=== PATIENT | female | born 1985 ===

== ENCOUNTER 2018-05-18 14:43 | Outpatient (CLI) | payer OTHER | END 2018-05-18 14:44 | disposition home or self-care (01) | LOC: C.LAB 14:43 ==

== ENCOUNTER 2018-06-03 08:37 | Outpatient (CLI) | payer SELFPAY | END 2018-06-03 08:38 | disposition home or self-care (01) | LOC: C.LAB 08:37 ==

== ENCOUNTER 2018-06-08 09:38 | Emergency (ER) | payer SELFPAY ==
[2018-06-08 09:48] VITALS: BP 133/95; PULSE 89; RESP 18; TEMP 98.3; O2SAT 100
[2018-06-08] MEDS ORDERED: Penicillin G Benzathine 2.4 Mill Unit/4 ml Syr IM ONE (10:04)
--- NOTE | 2018-06-08 11:25 | C.PDOC ---
History Of Present Illness Pt was sent in by her Manager Dialysis Dr. Rios to receive Bicillin IM due to positive RPR. Pt is asymptomatic. Time Seen by Provider: 06/08/18 09:52 Chief Complaint (Nursing): Medical Clearance History Per: Patient Onset/Duration Of Symptoms: Days Current Symptoms Are (Timing): Still Present Severity: None Reports Recently: Treated By A Physician Additional History Per: Prior Records Past Medical History Reviewed: Historical Data, Nursing Documentation, Vital Signs Vital Signs: Last Vital Signs Temp 98.3 F 06/08/18 09:45 Pulse 89 06/08/18 09:45 Resp 18 06/08/18 09:45 BP 133/95 H 06/08/18 09:45 Pulse Ox 100 06/08/18 09:45 - Medical History PMH: No Chronic Diseases Other PMH: Pt is 32 weeks . Family History: States: Unknown Family Hx - Social History Hx Tobacco Use: No Hx Alcohol Use: No Hx Substance Use: No - Immunization History Hx Tetanus Toxoid Vaccination: No Hx Influenza Vaccination: No Hx Pneumococcal Vaccination: No Review Of Systems Except As Marked, All Systems Reviewed And Found Negative. Constitutional: Negative for: Fever Cardiovascular: Negative for: Chest Pain Respiratory: Negative for: Shortness of Breath Gastrointestinal: Negative for: Abdominal Pain Musculoskeletal: Negative for: Neck Pain Skin: Negative for: Rash Neurological: Negative for: Weakness, Numbness Physical Exam - Physical Exam Appears: Non-toxic, No Acute Distress Skin: Normal Color, Warm, Dry Head: Atraumatic, Normacephalic Eye(s): bilateral: PERRL Neck: Normal ROM, Supple Cardiovascular: Rhythm Regular Respiratory: Normal Breath Sounds, No Accessory Muscle Use Gastrointestinal/Abdominal: Soft, No Tenderness, Other (Gravid) Extremity: Normal ROM Neurological/Psych: Oriented x3, Normal Motor, Normal Sensation ED Course And Treatment O2 Sat by Pulse Oximetry: 100 Pulse Ox Interpretation: Normal - Physician Consult Information Physician Contacted: Bart Rios Outcome Of Conversation: She wants pt to go up to L&D for further evaluation after Bicillin injection. Disposition Counseled Patient/Family Regarding: Diagnosis, Need For Followup - Disposition Disposition: HOME/ ROUTINE Disposition Time: 11:25 Condition: STABLE Additional Instructions: Go to L&D department today for further evaluation and treatment. Instructions: Syphilis (DC) - Clinical Impression Clinical Impression: Positive RPR test
== END 2018-06-08 11:47 | disposition home or self-care (01) ==
LOC: C.ER 09:38
DX: A53.0 Latent syphilis, unspecified as early or late (principal)

== ENCOUNTER 2018-06-10 09:39 | Emergency (ER) | payer SELFPAY ==
[2018-06-10 11:56] VITALS: BMI 24.2
[2018-06-10 12:13] LABS: SQUAMOUS EPITHIAL 6 /hpf (0-5); URINE BACTERIA MANY (<OCC); URINE BILIRUBIN NEGATIVE (NEGATIVE); URINE BLOOD NEGATIVE (NEGATIVE); URINE CLARITY Clear (Clear); URINE COLOR Straw (YELLOW); URINE GLUCOSE (UA) 1+ mg/dL (Normal); URINE LEUKOCYTE ESTERASE NEG Leu/uL (Negative); URINE PROTEIN NEGATIVE (NEGATIVE); URINE UROBILINOGEN NORMAL mg/dL (0.2-1.0)
[2018-06-10 17:32] VITALS: BP 105/68; PULSE 67; RESP 20; TEMP 97.1; O2SAT 100
== END 2018-06-10 13:21 | disposition home or self-care (01) ==
LOC: C.EROB 09:39
DX: Z36.89 Encounter for other specified antenatal screening (principal)

== ENCOUNTER 2018-06-29 11:32 | Emergency (ER) | payer OTHER ==
[2018-06-29] MEDS ORDERED: Lactated Ringer's 1,000 ML IV ONE (12:39)
[2018-06-29 13:06] LABS: BASO % 0.4 % (0.0-2.0); EOS % 0.6 % (0.0-4.0); HEMOGLOBIN 12.1 g/dL (11.0-16.0); LYMPH # 1.4 K/uL (1.0-4.3); LYMPH % 16.9 % (20.0-40.0); MEAN CELL VOLUME 89.3 fL (81.0-99.0); MEAN CORPUSCULAR HEMOGLOBIN 30.6 pg (27.0-31.0); MEAN CORPUSCULAR HGB CONC 34.3 g/dL (33.0-37.0); MEAN PLATELET VOLUME 8.3 fL (7.2-11.7); MONO # 0.7 K/uL (0.0-0.8); MONO % 8.7 % (0.0-10.0); NEUT # 6.3 K/uL (1.8-7.0); NEUT % 73.4 % (50.0-75.0); RBC 3.95 Mil/uL (3.80-5.20); RED CELL DISTRIBUTION WIDTH 12.1 % (11.5-14.5); WHITE BLOOD COUNT 8.6 K/uL (4.8-10.8)
[2018-06-29 13:17] LABS: INR 0.9
[2018-06-29 13:23] LABS: SQUAMOUS EPITHIAL 10 /hpf (0-5); URINE BACTERIA RARE (<OCC); URINE BILIRUBIN NEGATIVE (NEGATIVE); URINE BLOOD NEGATIVE (NEGATIVE); URINE CLARITY Clear (Clear); URINE COLOR Straw (YELLOW); URINE GLUCOSE (UA) NORMAL (Normal); URINE LEUKOCYTE ESTERASE NEG Leu/uL (Negative); URINE PROTEIN NEGATIVE (NEGATIVE); URINE UROBILINOGEN NORMAL mg/dL (0.2-1.0)
[2018-06-29 13:28] LABS: ALBUMIN 3.3 g/dL (3.5-5.0); ALT/SGPT 13 U/L (9-52); AST/SGOT 28 U/L (14-36); BLOOD UREA NITROGEN 12 mg/dL (7-17); CALCIUM 9.1 mg/dl (8.6-10.4); GFR NON-AFRICAN AMERICAN > 60; URIC ACID 4.6 mg/dL (2.2-7.5)
[2018-06-29 13:42] LABS: PROTHROMBIN TIME 9.9 SECONDS (9.7-12.2)
--- NOTE | 2018-06-29 14:14 | US ---
Indication: Decreased movement Comparison: None available Technique: Real-time ultrasound was performed through the pelvis. Findings: There is a single living fetus in cephalic presentation. Amniotic fluid volume is within normal limits measuring approximately 10.9 cm. Posterior placenta. The placenta is not previa. There are no adnexal masses or cysts evident. Cervix length measures approximately 4.3 cm. The study was performed for the emergent evaluation of decreased movement, and the whole anatomic survey of the fetus was not performed. Measurements and calculations: Fetus has a composite sonographic age of 34 weeks 6 days. This calculation is based on the biparietal diameter, head circumference, abdominal circumference, and femur length. Estimated heart rate 137.2 beats per min. Estimated weight 2565 g. Biophysical profile: movements 2/2 breathing 2/2 tone 2/2 Amniotic fluid 2/2 Total score impression: 8 Impression: Single living fetus with a composite sonographic age of 34 weeks 6 days. Estimated heart rate 137.2 beats per min. Biophysical profile of 8 out of 8.
[2018-06-29 19:27] VITALS: BP 128/78; PULSE 75; RESP 18; TEMP 97.7; O2SAT 100
--- NOTE | 2018-06-30 14:15 | OBHP ---
Datetime: 06/29/2018 12:26 IP Adm Impression: , intrauterine ; No Active Labor IP Admit Plan: Discharge home Admit Comment, IP Provider: Patient is a 33 year old at 35w2d by LMP with NASIR 08/01/18 who pr esents to the unit for decreased movement. Patient states that she stopped feeling the baby mov e aat approximately 7am. She reports that she last ate at approximately 6am. She denies any contracti ons, vaginal bleeding or leakage of fluid. Denies headaches, dizziness, blurry vision, RUQ/epigatsric pain, edema. Patient was seeing Dr Rios in the past for care but just recently transferre d care to [facility]. Issues: + RPR - treated with Bicillin x 1 Gestational vs Chronic Hypertension? - on labetalol 100mg PO BID Advanced Maternal Age Previous C/S x 1 OB Hx: 1. 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 Triad 14 x regular x 5 days Denies history of fibroids, ovarian cysts, STDs Denies history of abnormal pap smears Allergies: NKDA Medications: Labetalol 100mg PO BID, PNV Medical History: Denies Surgical History: C/S x 1 Social History: Denies alcohol, tobacco, drug use Family History: Mother - healthy; Father - healthy PE: see above A/P: 33 year old at 35w2d who presents with decreased movement, previous c/s x 1, hx of positive RPR, on labetalol 100mg PO BID -NST reactive, Category I tracing -Irregular contractions noted on TOCO - IV fluid hydration ordered -Elevated BP measurement noted during initial interview - PIH labs ordered - BPP ordered -Will continue to monitor [employer] instructional facilitator # [id number] used for Elizabeth translation. Discussed with Dr Efren Amin DO PGY-2 Addendum: BPP 12/15, PIH labs within normal limits. Patient not in labor and currentlt endorses +FM. We will discharge patient home with labor precautions. Patient to follow up with [facility] as scheduled. A copy of her lab work and US report was provided to the patient. Pt seen and examined with Dr. Amin and agreed with all of her findings and POC. FHR - Baseline A Provider: 135 Contraction Comments Provider: irregular Comments, ACOG Physical Exam: VS: BP 129/79, 130/93 HR 88 Sat 100% on RA Gen: NAD, AAOx3 Abdomen: Soft, gravid, no RUQ/epigastric tenderness Ext: No edema, cyanosis, clubbing, no calf tenderness SVE: closed/50/-3 EGA AdmitDate IP: 35.2 Vital Signs Provider: Reviewed IP Chief Complaint: Decreased movement NICHD Variability Prov Fetus A: Moderate 6-25bpm NICHD Accel Fetus A IP Provider: 15X15 FHR Category Provider Fetus A: Category I NICHD Decel Fetus A IP Provider: None Dilatation, Provider: closed Effacement, Provider: 50 Station, Provider: -3 Datetime: 06/10/2018 11:08 Pelvic Type - PN: Adequate Abdomen - PN: Normal General - PN: Normal Gestation - Est Wks by US: 32.4
--- NOTE | 2018-06-30 14:22 | OBDCSUM ---
Datetime: 06/29/2018 14:44 Discharge Comment, Provider: Patient presented with decreased movement since this morning. NST was reactive and BPP was 8/8. She initially has some elevated BP readings, PIH labs were within norm al limits. Some irregular contractions were noted on TOCO. Patient was given IV fluid hydration. Kassandra ent not in labor. labor precautions were given. Patient to follow up with the clinic as sched uled tomorrow. Plan discussed with Dr Schwartz. Madisyn Amin DO PGY-2 Pt seen and examined with Dr. Amin and agreed with all of her findings and POC
== END 2018-06-29 15:01 | disposition home or self-care (01) ==
LOC: C.EROB 11:32
DX: O36.8130 Decreased fetal movements, third trimester, not applicable or unspecified (principal); Z3A.35 35 weeks gestation of pregnancy
CPT/HCPCS: 76815; 76818; 80053; 81001; 82570; 83615; 84156; 84550; 85025; 85384; 85610; 85730; 99284; J7120

== ENCOUNTER 2018-07-02 08:34 | Outpatient (CLI) | payer OTHER | END 2018-07-02 08:35 | disposition home or self-care (01) | LOC: C.LAB 08:34 | DX: Z34.93 Encounter for supervision of normal pregnancy, unspecified, third trimester (principal) ==

== ENCOUNTER 2018-07-25 07:35 | Inpatient (IN) | payer SELFPAY ==
[2018-07-25] MEDS ORDERED: Lactated Ringer's 1,000 ML IV ONE (08:11)
[2018-07-25 08:15] VITALS: BMI 31.9
[2018-07-25] MEDS ORDERED: Sodium Citrate/Citric Acid 15 ml Sol PO ONE (08:30)
[2018-07-25] MEDS ORDERED: cefOXitin IV 2 gm in Dextrose 2 GM/50 ML BAG IVPB ONE ×2 (09:00→09:24)
[2018-07-25] MEDS ORDERED: Sodium Citrate/Citric Acid 15 ml Sol ONE (09:24)
[2018-07-25] MEDS ORDERED: Oxytocin 20 units in LR 2,000 ML IV ONE (09:26)
[2018-07-25 09:27] LABS: BASO # 0.1 K/uL (0.0-0.2); BASO % 0.7 % (0.0-2.0); EOS # 0.1 K/uL (0.0-0.7); EOS % 1.3 % (0.0-4.0); HEMOGLOBIN 12.9 g/dL (11.0-16.0); LYMPH # 1.5 K/uL (1.0-4.3); LYMPH % 16.5 % (20.0-40.0); MEAN CELL VOLUME 90.4 fL (81.0-99.0); MEAN CORPUSCULAR HEMOGLOBIN 30.4 pg (27.0-31.0); MEAN CORPUSCULAR HGB CONC 33.6 g/dL (33.0-37.0); MONO # 0.8 K/uL (0.0-0.8); MONO % 8.9 % (0.0-10.0); NEUT # 6.4 K/uL (1.8-7.0); NEUT % 72.6 % (50.0-75.0); NRBC % 0.1 % (0.0-2.0); RBC 4.23 Mil/uL (3.80-5.20); RED CELL DISTRIBUTION WIDTH 13.7 % (11.5-14.5); WHITE BLOOD COUNT 8.9 K/uL (4.8-10.8)
[2018-07-25 09:33] LABS: CREATININE, RANDOM URINE 23.8 mg/dL; SQUAMOUS EPITHIAL 3 /hpf (0-5); URINE BACTERIA MANY (<OCC); URINE BILIRUBIN NEGATIVE (NEGATIVE); URINE BLOOD NEGATIVE (NEGATIVE); URINE CLARITY Clear (Clear); URINE COLOR Straw (YELLOW); URINE GLUCOSE (UA) NORMAL (Normal); URINE LEUKOCYTE ESTERASE NEG Leu/uL (Negative); URINE PROTEIN NEGATIVE (NEGATIVE); URINE UROBILINOGEN NORMAL mg/dL (0.2-1.0)
[2018-07-25 09:36] LABS: ALB/GLOB RATIO 1.4 (1.0-2.1); ALBUMIN 3.7 g/dL (3.5-5.0); ALT/SGPT 10 U/L (9-52); AST/SGOT 25 U/L (14-36); BLOOD UREA NITROGEN 12 mg/dL (7-17); GFR NON-AFRICAN AMERICAN > 60; URIC ACID 6.6 mg/dL (2.2-7.5)
[2018-07-25] MEDS: Lactated Ringer's 1,000 ML IV SCH ×2 (09:50→17:52)
[2018-07-25] MEDS ORDERED: Naloxone 0.4 mg/ml Inj (Adult) IVP PRN (10:03)
[2018-07-25] MEDS ORDERED: Morphine 1 mg/ml preservative-free Inj(Duramorph) ONE (10:19)
[2018-07-25] MEDS ORDERED: EPINEPHrine 1 mg/ml (1:1000) Inj ONE (10:19)
[2018-07-25 10:44] LABS: INR 0.9
[2018-07-25 10:45] LABS: PROTHROMBIN TIME 9.5 SECONDS (9.7-12.2)
[2018-07-25] MEDS ORDERED: Oxycodone/Acetaminophen 5/325 mg Tab PO PRN (10:58)
[2018-07-25] MEDS ORDERED: Oxytocin 10 Units/ml Inj ONE (11:15)
[2018-07-25] MEDS: Simethicone 80 mg Chewtab PO SCH ×3 (15:03→21:18)
--- NOTE | 2018-07-25 15:43 | OBHP ---
Datetime: 07/25/2018 09:53 IP Adm Impression: Term, intrauterine IP Admit Plan: Admit to unit; Initiate Section protocol Admit Comment, IP Provider: Patient is a 33 year old at 39 weeks by LMP with NASIR 08/01/18 who presents to the unit for schedule repeat . Patient denies any current contraction, vaginal bleeding or discharge, leakage of fluid, dysuria, itching, fever, and SOB. She further denies headach es, dizziness, blurry vision, RUQ/epigatsric pain, edema. She states that she feels the baby moving n ormally. She reports that she last ate at approximately 9pm. Patient was seeing Dr Rios in the past for care but just recently transferred care to [facility]. Issues: + RPR and + FTA ABS on 05/18/18 and 05/20/18 respectively - treated with Bicillin x 3 On 07/02/18 shows negative RPR Gestational Hypertesion - on labetalol 100mg PO BID GDM managed with diet control Advanced Maternal Age Previous C/S x 1 [place] for "Decreased water" OB Hx: 1. 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 age of menarche: 14 yo Triad 14 x regular x 5 days Denies history of fibroids, ovarian cysts, STDs prior to Denies history of abnormal pap smears Allergies: NKDA Medications: Labetalol 100mg PO BID, PNV Medical History: Denies Surgical History: C/S x 1 Social History: Denies alcohol, tobacco, drug use Family History: Mother - healthy; Father - PE: see above A/P: 33 year old at 39w presents scheduled repeat C/S, previous c/s x 1, afebrile, VS stab le hx of positive RPR-treated, A1GDM, on labetalol 100mg PO BID, - admit for repeat C/S - draw labs and start IV - Notify anesthesia and senior quality control inspector - NST reactive - will prepare for c/s - H/H and VS stable [employer] conference interpreter #[id number] used for Elizabeth translation. Plan discussed with Dr Efren Serrano, DO PGY-1 Hector Meraz, OMS-III Kevin Kramer, OMS-III Pt seen and examined with the Drs named above and all of their findings and POC were fully discuss ed and agreed on. Pelvic Type - PN: Adequate Extremities - PN: Normal Abdomen - PN: Normal Breast - PN: Not Done Lungs - PN: Normal Heart - PN: Normal General - PN: Normal Presentation-Admit: Vertex FHR - Baseline A Provider: 140 Membranes, Provider: Intact Contraction Comments Provider: Irregular Comments, ACOG Physical Exam: fundal height measured at 37cm Gestation - Est Wks by US: 39.0 IP Hx Assessment: The History has been Reviewed and is Current EGA AdmitDate IP: 39.0 Vital Signs Provider: Reviewed; Within Normal Limits IP Indication for Induction: Not Applicable IP Chief Complaint: Scheduled Section; Other NICHD Variability Prov Fetus A: Moderate 6-25bpm NICHD Accel Fetus A IP Provider: 15X15 FHR Category Provider Fetus A: Category I NICHD Decel Fetus A IP Provider: None Dilatation, Provider: 1 Effacement, Provider: 70 Station, Provider: -3
--- NOTE | 2018-07-25 16:08 | OBADHP ---
Datetime: 07/25/2018 09:53 IP Chief Complaint Other: Gestatonal Hypertension Gestational Diabetic Admit Comment, IP Provider: Patient is a 33 year old at 39 weeks by LMP with NASIR 08/01/18 who presents to the unit for schedule repeat . Patient denies any current contraction, vaginal bleeding or discharge, leakage of fluid, dysuria, itching, fever, and SOB. She further denies headach es, dizziness, blurry vision, RUQ/epigatsric pain, edema. She states that she feels the baby moving n ormally. She reports that she last ate at approximately 9pm. Patient was seeing Dr Rios in the past for care but just recently transferred care to [facility]. Issues: + RPR and + FTA ABS on 05/18/18 and 05/20/18 respectively - treated with Bicillin x 3 On 07/02/18 shows negative RPR Gestational Hypertesion - on labetalol 100mg PO BID GDM managed with diet control Advanced Maternal Age Previous C/[place] x 1 [place] for [place]creased water" OB Hx: 1. 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 age of menarche: 14 yo Triad 14 x regular x 5 days Denies history of fibroids, ovarian cysts, STDs prior to Denies history of abnormal pap smears Allergies: NKDA Medications: Labetalol 100mg PO BID, PNV Medical History: Denies Surgical History: C/S x 1 Social History: Denies alcohol, tobacco, drug use Family History: Mother - healthy; Father - PE: see above A/P: 33 year old at 39w presents scheduled repeat C/S, previous c/s x 1, afebrile, VS stab le hx of positive RPR-treated, A1GDM, on labetalol 100mg PO BID, - admit for repeat C/S - draw labs and start IV - Notify anesthesia and rn perinatal - NST reactive - H/H and VS stable - RPR and FTA sent - All other admit labs WNL - BP's moderately elevated with highest at 134/92 - PIH labs WNL/ Asymptomatic - Anesthesia seen the patient - Will proceed with C/S. Procedure, risks and possible complications fully reviewed with the patie nt and she verbalized understanding, requested to proceed and signed the consent. [employer] chronic care nurse #[id number] used for Elizabeth translation. Plan discussed with Dr Efren Serrano, DO PGY-1 Hector Meraz, OMS-III Kevin Kramer, OMS-III Pt seen and examined with the Drs named above and all of their findings and POC were fully discuss ed and agreed on. Pelvic Type - PN: Adequate Extremities - PN: Normal Abdomen - PN: Normal Breast - PN: Not Done Lungs - PN: Normal Heart - PN: Normal General - PN: Normal Presentation-Admit: Vertex FHR - Baseline A Provider: 140 Membranes, Provider: Intact Contraction Comments Provider: Irregular Comments, ACOG Physical Exam: fundal height measured at 37cm Gestation - Est Wks by US: 39.0 IP Hx Assessment: The History has been Reviewed and is Current Vital Signs Provider: Reviewed; Within Normal Limits IP Chief Complaint: Scheduled Section; Other NICHD Variability Prov Fetus A: Moderate 6-25bpm NICHD Accel Fetus A IP Provider: 15X15 FHR Category Provider Fetus A: Category I NICHD Decel Fetus A IP Provider: None Dilatation, Provider: 1 Effacement, Provider: 70 Station, Provider: -3 EGA AdmitDate IP: 39.0 IP Adm Impression: Term, intrauterine ; No Active Labor; Intact Membranes IP Admit Plan: Admit to unit; Initiate Section protocol
[2018-07-25 16:46] LABS: RAPID PLASMA REAGIN REACTIVE (NONREACTIVE)
[2018-07-26] MEDS: Lactated Ringer's 1,000 ML IV SCH (01:45)
[2018-07-26] MEDS: Oxycodone/Acetaminophen 5/325 mg Tab PO PRN ×2 (05:17→21:28)
[2018-07-26 08:03] LABS: HEMOGLOBIN 12.9 g/dL (11.0-16.0); MEAN CELL VOLUME 90.1 fL (81.0-99.0); MEAN CORPUSCULAR HEMOGLOBIN 30.3 pg (27.0-31.0); MEAN CORPUSCULAR HGB CONC 33.7 g/dL (33.0-37.0); MEAN PLATELET VOLUME 8.7 fL (7.2-11.7); RBC 4.25 Mil/uL (3.80-5.20); RED CELL DISTRIBUTION WIDTH 14.2 % (11.5-14.5); WHITE BLOOD COUNT 12.4 K/uL (4.8-10.8)
--- NOTE | 2018-07-26 09:46 | OBDS ---
DELIVERY PERSONNEL Delivery Doctor: Lakeshia Schwartz DO Scrub Nurse: Paulina Cunha Utility Technician: Summer Wellington RN Anesthesiologist: Paresh Desouza MD MATERNAL INFORMATION Delivery Anesthesia: Spinal Medications in Delivery: pitocin Estimated Blood Loss (ml): 600 Placenta Cultured: No Maternal Complications: Other Other Maternal Complications: GHTN, GDMA1 Provider Comments: Repeat LTC Section with delivery of a viable male from GREGORY position after ROM with clear fluid. Apgard 9_9 and Bw 7lbs 15oz. Cord blood and cord Ph obtained and sent. Placenta manually delivered, with 3 vessel cord and sent to Pathology . EBL 600 mls nasal and oropharynx suctioned upon delivery of the head and upon completion of the delive ry. Pt and Neonated both tolerated the procedure well and remained in the OR in S_S conditon. Dr. Richmond, Metal Finisher at delivery surgery assistant, Dr. Boothe present from the beginning to the end of the procedure. LABOR SUMMARY EDC: 08/01/2018 00:00 No. Babies in Womb: 1 Attempted: No Labor Anesthesia: None LABOR INFORMATION Reason for Induction: Not Applicable Oxytocin: N/A Group B Beta Strep: Negative Steroids Given: None Reason Steroids Not Administered: Not Applicable MEMBRANES Membranes Rupture Method: Artificial Rupture of Membranes: 07/25/2018 11:06 Length of Rupture (hrs): 0.03 Amniotic Fluid Color: Clear Amniotic Fluid Amount: None Amniotic Fluid Odor: Normal STAGES OF LABOR Stage 3 hrs: 0 Stage 3 min: 1 CSECTION DELIVERY Primary Indication: Repeat Elective Secondary Indication: N/A CSection Urgency: Elective CSection Incidence: Repeat Labor: N/A Elective: Elective CSection Incision: Lower Uterine Transverse BABY A INFORMATION Infant Delivery Date/Time: 07/25/2018 11:08 Method of Delivery: Born in Route : No : N/A Forceps: N/A Vacuum Extraction: N/A Shoulder Dystocia : No SHOULDER DYSTOCIA BABY A Delivery Date/Time: 07/25/2018 11:08 PRESENTATION/POSITION BABY A Presentation: Cephalic Cephalic Presentation: Vertex Vertex Position: Left Occipital Anterior Breech Presentation: N/A PLACENTA INFORMATION BABY A Placenta Delivery Time : 07/25/2018 11:09 Placenta Method of Delivery: Manual Removal Placenta Status: Delivered SCORES BABY A Heart Rate 1 min: >100 bpm Resp Effort 1 min: Good Cry Reflex Irritability 1 min: Cough or Sneeze or Pulls Away Muscle Tone 1 min: Active Motion Color 1 min: Body Jobos, Extremities Blue Resuscitation Effort 1 min: Tactile Stimulation SCORE 1 MIN: 9 Heart Rate 5 min: >100 bpm Resp Effort 5 min: Good Cry Reflex Irritability 5 min: Cough or Sneeze or Pulls Away Muscle Tone 5 min: Active Motion Color 5 min: Body Jobos, Extremities Blue SCORE 5 MIN: 9 INFANT INFORMATION BABY A Gestational Age at Delivery: 39.0 Gestational Status: Term Infant Outcome : Liveborn Condition : Stable Infant Sex: Male IDENTIFICATION/MEDS BABY A ID Band Number: [id number] ID Band Location: Left Leg; Left Arm Sensor Applied: Yes Sensor Number: [id number] Sensor Location : Cord Clamp WEIGHT/LENGTH BABY A Infant Birthweight (gms): 3600 Weight (lb): 7 Weight (oz): 15 Infant Length Inches: 19.50 Length cms: 49.5 CORD INFORMATION BABY A No. Cord Vessels: 3 Nuchal Cord : N/A Cord pH Baby Arterial: 7.13 Infant Cord pH Baby Venous: 7.18 Cord Blood Taken: Yes Infant Suction: Mouth; Nose ASSESSMENT BABY A Infant Complications: None Physical Findings at Delivery: Within Normal Limits Infant Respirations: Appears Normal Basket Machine Operator/ALS Called : Yes Care By: Dr. Richmond and Geraldine Vinson RN Transferred To: [facility]
[2018-07-26] MEDS: Simethicone 80 mg Chewtab PO SCH ×4 (10:11→21:25)
[2018-07-26] MEDS: Prenatal Multivit/Folic Acid/Iron Tab PO SCH (10:11)
--- NOTE | 2018-07-26 12:15 | CP.PCM.CON ---
History of Present Illness - History of Present Illness History of Present Illness: examined at bedside chart reviewed orders signed referred for ID eval + RPR in a 33 yo female s/p C section delivery of healthy baby boy was treated for Syphilis 05/18/2018 with 3 IM benzathine PCN reportedly tested subsequent titer reportedly showed neg RPR in June 2018 Review of Systems - Review of Systems All systems: reviewed and no additional remarkable complaints except - Constitutional Constitutional: As Per HPI - EENT Eyes: absent: As Per HPI, Blind Spots, Blurred Vision, Change in Vision, Decreased Night Vision, Diplopia, Discharge, Dry Eye, Exophthalmos, Floaters, Irritation, Itchy Eyes, Loss of Peripheral Vision, Pain, Photophobia, Requires Corrective Lenses, Sees Flashes, Spots in Vision, Tunnel Vision, Other Visual Disturbances, Loss of Vision, Other Ears: absent: As Per HPI, Decreased Hearing, Ear Discharge, Ear Pain, Tinnitus, Abnormal Hearing, Disequilibrium, Dizziness, Other - Breasts Breasts: absent: As Per HPI, Change in Shape, Mass, Pain, Nipple Discharge, Nipple Inversion, Skin Changes, Swelling, Other - Cardiovascular Cardiovascular: absent: As Per HPI, Acrocyanosis, Chest Pain, Chest Pain at Rest, Chest Pain with Activity, Claudication, Diaphoresis, Dyspnea, Dyspnea on Exertion, Edema, Irregular Heart Rhythm, Pain Radiating to Arm/Neck/Jaw, Leg Edema, Leg Ulcers, Lightheadedness, Orthopnea, Palpitations, Paroxysmal Nocturnal Dyspnea, Pedal Edema, Radiating Pain, Rapid Heart Rate, Slow Heart Rate, Syncope, Other - Respiratory Respiratory: absent: As Per HPI, Cough, Dyspnea, Hemoptysis, Dyspnea on Exertion, Wheezing, Snoring, Stridor, Pain on Inspiration, Chest Congestion, Excessive Mucous Production, Change in Mucous Color, Pain with Coughing, Other - Gastrointestinal Gastrointestinal: absent: As Per HPI, Abdominal Pain, Belching, Bloating, Change in Bowel Habits, Change in Stool Character, Coffee Ground Emesis, Constipation, Cramping, Diarrhea, Dyspepsia, Dysphagia, Early Satiety, Excessive Flatus, Fecal Incontinence, Heartburn, Hematemesis, Hematochezia, Loose Stools, Melena, Nausea, Odynophagia, Temesmus, Vomiting, Other - Genitourinary Genitourinary: As Per HPI - Reproductive: Female Reproductive:Female: As Per HPI - Menstruation Menstruation: As Per HPI - Integumentary Integumentary: absent: As Per HPI, Acne, Alopecia, Bleeding Lesions, Change in Hair, Change in Nails, Change in Pigmentation, Changing Lesions, Dry Skin, Erythema, Furuncle, Hirsutism, Lesions, New Lesions, Non-Healing Lesions, Photosensitivity, Pruritus, Rash, Skin Pain, Skin Ulcer, Sores, Striae, Swe lling, Unusual Bruising, Wounds, Jaundice, Other - Neurological Neurological: absent: As Per HPI, Abnormal Gait, Abnormal Hearing, Abnormal Movements, Abnormal Speech, Behavioral Changes, Burning Sensations, Confusion, Convulsions, Disequilibrium, Dizziness, Numbness, Focal Weakness, Frequent Falls, Headaches, Lack of Coordination, Loss of Vision, Memory Loss, Paresthesias, Radicular Pain, Restless Legs, Sensory Deficit, Syncope, Tingling, Tremor, Vertigo, Weakness, Other Visual Disturbances, Other - Psychiatric Psychiatric: absent: As Per HPI, Abnormal Sleep Pattern, Anhedonia, Anxiety, Auditory Hallucinations, Behavioral Changes, Change in Appetite, Change in Libido, Confusion, Depression, Difficulty Concentrating, Hallucinations, Homicidal Ideation, Hopelessness, Irritability, Memory Loss, Mood Swings, Panic Attacks, Paranoia, Suicidal Ideation, Visual Hallucinations, Tactile Hallucinations, Other - Endocrine Endocrine: absent: As Per HPI, Change in Body Appearance, Change in Libido, Cold Intolorance, Deepening of Voice, Excessive Sweating, Fatigue, Flushing, Heat Intolorance, Increase in Ring/Shoe/Hat Size, Palpitations, Polydipsia, Polyphagia, Polyuria, Other - Hematologic/Lymphatic Hematologic: absent: As Per HPI, Easy Bleeding, Easy Bruising, Lymphadenopathy, Other Past Patient History - Infectious Disease Hx of Infectious Diseases: None - Past Social History Smoking Status: Never Smoked - PSYCHIATRIC Hx Substance Use: No - SURGICAL HISTORY Hx Surgeries: Yes Hx Section: Yes - ANESTHESIA Hx Anesthesia: Yes Hx Anesthesia Reactions: No Meds Allergies/Adverse Reactions: Allergies Allergy/AdvReac Type Severity Reaction Status Date / Time No Known Allergies Allergy Verified 06/08/18 09:44 - Medications Medications: Current Medications Docusate Sodium (Colace) 100 mg PO BID [facility] Last Admin: 07/26/18 10:11 Dose: 100 mg Ibuprofen (Motrin Tab) 600 mg PO Q6H [facility] Naloxone HCl (Narcan) 0.1 mg IVP Q2M PRN PRN Reason: apnea Ondansetron HCl (Zofran Inj) 4 mg IVP Q8H PRN PRN Reason: Nausea/Vomiting Oxycodone/Acetaminophen (Percocet 5/325 Mg Tab) 1 tab PO Q4H PRN PRN Reason: Pain, moderate (4-7) Stop: 07/28/18 10:59 Last Admin: 07/26/18 05:17 Dose: 1 tab Oxycodone/Acetaminophen (Percocet 5/325 Mg Tab) 2 tab PO Q4H PRN PRN Reason: Pain, severe (8-10) Stop: 07/28/18 10:59 Multivit/Folic Acid/Iron () 1 tab PO DAILY [facility] Last Admin: 07/26/18 10:11 Dose: 1 tab Sennosides (Senokot Tab) 17.2 mg PO HS [facility] Last Admin: 07/25/18 21:18 Dose: 17.2 mg Simethicone (Mylicon Chew Tab) 80 mg PO QID [facility] Last Admin: 07/26/18 10:11 Dose: 80 mg Physical Exam - Constitutional Appears: Well, No Acute Distress - Head Exam Head Exam: ATRAUMATIC, NORMAL INSPECTION, NORMOCEPHALIC - Eye Exam Eye Exam: EOMI, Normal appearance, PERRL Pupil Exam: NORMAL ACCOMODATION, PERRL - ENT Exam ENT Exam: Mucous Membranes Moist, Normal Exam - Neck Exam Neck exam: Positive for: Normal Inspection - Respiratory Exam Respiratory Exam: Clear to Auscultation Bilateral, NORMAL BREATHING PATTERN - Cardiovascular Exam Cardiovascular Exam: REGULAR RHYTHM - GI/Abdominal Exam GI & Abdominal Exam: Distended, Normal Bowel Sounds, Soft, Tenderness - Rectal Exam Rectal Exam: Deferred - Exam Exam: NORMAL INSPECTION - Extremities Exam Extremities exam: Positive for: normal inspection - Back Exam Back exam: NORMAL INSPECTION - Neurological Exam Neurological exam: Alert, CN II-XII Intact, Normal Gait, Oriented x3, Reflexes Normal - Psychiatric Exam Psychiatric exam: Normal Affect, Normal Mood - Skin Skin Exam: Dry, Intact, Normal Color, Warm Results - Vital Signs Recent Vital Signs: Last Vital Signs Temp 97.6 F 07/26/18 08:00 Pulse 81 07/26/18 08:00 Resp 18 07/26/18 08:00 BP 130/74 07/26/18 08:00 Pulse Ox 99 07/26/18 08:00 - Labs Result Diagrams: 07/26/18 07:54 07/25/18 09:14 Labs: Laboratory Results - last 24 hr 07/25/18 07/26/18 09:14 07:54 WBC 12.4 H RBC 4.25 Hgb 12.9 Hct 38.3 MCV 90.1 MCH 30.3 MCHC 33.7 RDW 14.2 Plt Count 238 MPV 8.7 RPR Titer 1:2 H RPR Reactive H Assessment & Plan (1) Positive RPR test Status: Acute - Assessment and Plan (Free Text) Assessment: 33 YO FEMALE SEEN POST HAD BEEN TREATED FOR LATE LATENT SYPHILIS IN 05/2018 WITH 3 DOSES BENZATHINE PCN REPORTEDLY HAD NEGATIVE RPR IN JUNE NOW HAS + RPR 1:2 + RPR AT THIS TIME MAY REPRESENT PERSISTENT LOW LEVEL TITER FROM INITIAL INFECTION WOULD TRY TO OBTAIN TITER FROM TIME OF DIAGNOSIS ( griddig ONLY LISTS + RPR WITHOUT TITER ) WOULD CONFIRM TREATMENT OF PARTNER / IF NEVER TREATED MAY NEED TO RETREAT HER WITH SINGLE DOSE BENZATHINE PCN AND ENSURE TREATMENT OF PARTNER
--- NOTE | 2018-07-26 18:01 | OBPPN ---
Datetime: 07/26/2018 07:23 PP Pain Prov: Within normal limits PP Nausea Prov: Denies PP Flatus Prov: No PP BM Prov: No PP Breasts Prov: Normal PP Heart Prov: Normal PP Lungs Prov: Normal PP Abdomen/Uterus Prov: Normal PP Lochia Prov: Normal PP Vulva/Perineum Prov: Not Done PP CVA Tenderness Prov: Normal PP Extremities Prov: Normal PP C/S Incision Prov: Normal PP Progress Prov: Normal PP Comments Phys Exam Prov: Fundal height 1 finger breadth below the umbilicus PP Impression Prov: Normal progression PP Plan Prov: Continue present management PP Progress Note Prov: Patient seen and examined at bedside. No acute events overnight as per nursin g staff. Pain is 2/10 and controlled with analgesics. Patient reports minimal lochia, she states that she changed 4 pads yesterday. She denies nausea, vomiting, flatus, or bowel movement. She is urinati ng normally, ambulating well, and tolerating diet. She states that the baby is only and with good latch. She denies fevers, chills, shhortness of breath, chest pain, or urinary symptoms. VS: BP:130/74 T: 97.6 HR: 81 O2: 100% Gen: NAD, AAOX3 Cardio: RRR, normal S1, S2 Lungs: CTA b/l Abdomen: Soft, ,mildly tender to palpation in lower quadrants, normal bowel sounds, dressing C/D/I , Fundal height 1 finger breadth below the umbilicus. Extremities: +1 pitting edema bilaterally Assessment: Patient is a 33 year old s/p repeat POD #1. Plan: - Stable, afebrile - Patient is RPR positive, FTA-abs pending - Infectious disease, Dr. Razo consulted- awaiting recommendations - Pain control with Ibuprofen and Percocet - Encourage ambulation, hydration, , and ISS use - Advance diet as tolerated - Continue routine post-op care - Case discussed with Dr. Jasvir Serrano, PGY-1 Attending Note: patient seen, evaluated and examined by me with the Resident. Of note: dressing re moved. Incision with yenifer, clean, dry and intact. All else as above. Vital Signs Provider PP: Reviewed; Within Normal Limits
[2018-07-27] MEDS: Simethicone 80 mg Chewtab PO SCH ×4 (09:46→21:36)
[2018-07-27] MEDS: Prenatal Multivit/Folic Acid/Iron Tab PO SCH (09:46)
[2018-07-27] MEDS ORDERED: Penicillin G Benzathine 2.4 Mill Unit/4 ml Syr IM ONE (15:30)
[2018-07-28 08:08] VITALS: RESP 18; TEMP 97.2
[2018-07-28] MEDS: Prenatal Multivit/Folic Acid/Iron Tab PO SCH (09:19)
[2018-07-28] MEDS: Simethicone 80 mg Chewtab PO SCH (09:19)
[2018-07-28] MEDS ORDERED: Influenza Vaccine 60 mcg/0.5 mL SYR (4YR UP) IM ONE (09:23)
[2018-07-28 16:25] VITALS: BP 140/88; PULSE 78; O2SAT 97
--- NOTE | 2018-07-28 22:42 | OBPPN ---
Datetime: 07/28/2018 22:39 PP Pain Prov: Within normal limits PP Nausea Prov: Denies PP Flatus Prov: Yes PP BM Prov: Yes PP Progress Note Prov: Patient seen approximately 0915 hours. Pt seen and examined at bedside this am. No acute events overnight per patient and nursing staff. Pt is ambulating well, tolerating her diet, passing flatus and stool, urinating well. Pain is minimal and has been well controlled with ibuprofen. She denies fevers, chills, headache, dizziness, vision changes, chest pain, palpitatoins, shortness of breath, n/v/c/d, dysuria, hematuria. VS: T: 97.6 BP: 119/75 P: 95 RR: SpO2: 98% Labs: RPR (+), 1:2. FTA-ABS (+) Assessment: 33 y/o POD3 s/p repeat LTCS complicated by positive syphylis markers s/p IM penicillin treatm ent. made aware of positive syphylis markers and instructed, in detail, to f/u and receive baljit tment. Pt's child received penicillin treatment Plan: - Stable, afebrile - Pt _ baby received penicillin treatment 07/27/18 - Pt and educated in detail in [place] language about syphylis and requirement for t o get treatment for syphylis. Pt and verbalized understanding. reports he will go to [facility] for treatment along with . All questions and concerns were addressed and answered. - Pain control with Ibuprofen and Percocet and will continue - Encourage ambulation, hydration, , and ISS use - 1 week followup for routine post-operative assessment, including wound check and staple removal - Discharge today Simón Spears PGY1 Attending Note: patietn seen, evaluated and examined by me withthe resident.I agree withthe above as documented.
--- NOTE | 2018-07-28 22:44 | OBDCSUM ---
Datetime: 07/28/2018 08:27 Discharge Time: 07/28/2018 11:40 Contraception discussed, Prov: Yes Discharge Diagnosis Prov Other: Syphilis infection Status post repeat [place] delivery Contraaception counseling
== END 2018-07-28 11:40 | disposition home or self-care (01) | DRG 787 ==
LOC: C.EROB 07:35 → C.4D 08:12 → C.4M 16:25
PROVIDERS: ADMIT Obstetrics & Gynecology; ATTEND Obstetrics & Gynecology
PROC: 10D00Z1 Extraction of Products of Conception, Low, Open Approach (ICD-10-PCS; principal; 2018-07-25)
DX: O34.211 Maternal care for low transverse scar from previous cesarean delivery (principal); O98.12 Syphilis complicating childbirth; O24.420 Gestational diabetes mellitus in childbirth, diet controlled; O13.4 Gestational [pregnancy-induced] hypertension without significant proteinuria, complicating childbirth; Z3A.39 39 weeks gestation of pregnancy; Z37.0 Single live birth